=== PATIENT | female | born 1940 | race Caucasian/White ===

== ENCOUNTER 2019-03-07 16:24 | Outpatient (CLI) | payer MEDICARE, MEDICAID ==
--- NOTE | 2019-03-07 17:07 | MRI ---
MRI Lumbar Spine Noncontrast: HISTORY: Lumbar radiculopathy. COMPARISON: 11/14/2016 FINDINGS: Again noted are several increased T2-weighted hyperintense cystic-appearing lesions in each kidney wh ich are large in size but are incompletely imaged. Conus medullaris is normal in morphology and terminates at the L1 level. Mild endplate degenerative changes are seen in the lower lumbar spine, but there is otherwise normal signal intensity seen in the bone marrow. L1-2: Again noted is a small broad-based disc osteophyte complex with slight flattening of the anteri or aspect of the thecal sac. Neural foramina are patent. Facet degenerative changes are present. L2-3: Mild facet degenerative changes are seen. Central spinal canal and neural foramina are patent. Osteophytes are seen anteriorly at this level. L3-4: Broad-based disc osteophyte complex is present with facet hypertrophic changes noted. Fluid sig nal intensity is seen within the facet joint on the right. There is mild ligamentous thickening. There is mild generalized narrowing of the central spinal canal with severe right and mild to moderat e left-sided neural foraminal narrowing. Degree of neural foraminal narrowing has progressed when compared to prior study. L4-5: There is broad-based disc osteophyte complex and facet hypertrophic changes. There is loss of i ntervertebral disc height. There is a small central disc protrusion present. This results in only mild effacement of of the ventral aspect of the thecal sac without significant narrowing of the centr al spinal canal. There is mild bilateral neural foraminal narrowing not significantly progressed from prior exam. L5-S1: There is loss of intervertebral disc height. There is broad-based disc osteophyte complex with right paracentral disc protrusion. No significant narrowing of the central spinal canal is present, but there is narrowing of the right subarticular zone. The eccentric right disc bulge/disc p rotrusion does appear to contact the traversing right S1 nerve root and may affect the traversing right S1 nerve root. Mild bilateral neural foraminal narrowing is seen not significantly progressed f rom the prior exam. Facet hypertrophic changes are again noted. IMPRESSION: 1. Multilevel disc degenerative changes including multilevel facet hypertrophic changes, majority of which are overall stable compared to prior exam. Findings are greatest at the L5-S1 level where there is an eccentric right broad-based disc bulge versus disc protrusion which narrows the right lat eral recess and subarticular zone and likely contacts the traversing right S1 nerve root. Correlation for right S1 radiculopathy is recommended. 2. Multiple increased T2-weighted signal intensity lesions involving each kidney incompletely imaged or evaluated but were also present on prior study and are statistically likely related to multiple renal cysts.
== END 2019-03-07 16:25 | disposition home or self-care (01) ==
LOC: MRI 16:24
PROVIDERS: ATTEND Anesthesiology Pain Medicine
DX: M51.16 Intervertebral disc disorders with radiculopathy, lumbar region (principal); M47.26 Other spondylosis with radiculopathy, lumbar region; N28.9 Disorder of kidney and ureter, unspecified
CPT/HCPCS: 72148